=== PATIENT | male | born 1965 | race Hispanic/Latino ===

== ENCOUNTER 2019-06-19 15:31 | Emergency (ER) | payer SELFPAY ==
--- NOTE | 2019-06-19 16:57 | RAD REPORT ---
EXAM DESCRIPTION: USExtremjamila Venous Uni Ltd06/19/2019 4:51 pm CLINICAL HISTORY: Right leg pain . COMPARISON: None. FINDINGS: Right common femoral, superficial femoral, popliteal and right posterior tibial veins are compressible and demonstrate augmentation. Doppler demonstrates good flow. IMPRESSION: No evidence of deep venous thrombosis involving the right lower extremity.
--- NOTE | 2019-06-19 18:18 | ER ---
Nurse's Notes [facility] Name: Mervin Roper Age: 53 yrs Sex: Male : 1965 Arrival Date: 06/19/2019 Time: 15:32 Bed 26 Private MD: Unknown, Unknown Diagnosis: Pain in right lower leg;Sprain of deltoid ligament of right ankle Presentation: 06/19 16:17 Presenting complaint: Patient states: Swelling to the right leg since yesterday. aj1 Reports feeling "pins and needles" in his right foot. Strong DP pulse noted, but foot and lower leg is red and swollen. 16:22 Transition of care: patient was not received from another setting of care. Onset of aj1 symptoms was June 19, 2019. Risk Assessment: Do you want to hurt yourself or someone else? Patient reports no desire to harm self or others. Initial Sepsis Screen: Does the patient meet any 2 criteria? No. Patient's initial sepsis screen is negative. Does the patient have a suspected source of infection? No. Patient's initial sepsis screen is negative. Note Patient placed in a wheelchair and advised to not get up cleared by physician. Care prior to arrival: None. 16:22 Method Of Arrival: Ambulatory [facility] 16:22 Acuity: GREGORY 3 aj1 Triage Assessment: 16:25 General: Appears in no apparent distress. comfortable, Behavior is calm, cooperative, aj1 appropriate for age. Pain: Complains of pain in right leg Pain currently is 7 out of 10 on a pain scale. Neuro: Level of Consciousness is awake, alert, obeys commands. Cardiovascular: Patient's skin is warm and dry. Respiratory: Airway is patent Respiratory effort is even, unlabored, Respiratory pattern is regular, symmetrical. Historical: - Allergies: 16:24 Advil; aj1 - Home Meds: 16:24 None [Active]; aj1 - PMHx: 16:24 None; aj1 - Immunization history:: Flu vaccine is not up to date. - Social history:: Smoking status: Patient uses tobacco products, cigars. - Ebola Screening: : Patient denies travel to an Ebola-affected area in the 21 days before illness onset. Screenin:25 Abuse screen: Denies threats or abuse. Denies injuries from another. Nutritional rv screening: No deficits noted. Tuberculosis screening: No symptoms or risk factors identified. Fall Risk None identified. Assessment: 18:24 General: Appears in no apparent distress. comfortable, Behavior is calm, cooperative. rv Pain: Complains of pain in right leg. Neuro: Level of Consciousness is awake, alert, obeys commands, Oriented to person, place, time, situation. Cardiovascular: Patient's skin is warm and dry. Respiratory: Airway is patent. GI: No signs and/or symptoms were reported involving the gastrointestinal system. : No signs and/or symptoms were reported regarding the genitourinary system. EENT: No signs and/or symptoms were reported regarding the EENT system. Derm: Skin with poor turgor. Musculoskeletal: Swelling present in right leg. Vital Signs: 16:25 BP 120 / 76; Pulse 76; Resp 18; Temp 97.3; Pulse Ox 97% on R/A; Weight 84.37 kg (R); aj1 Height 5 ft. 6 in. (167.64 cm) (R); 16:25 Body Mass Index 30.02 (84.37 kg, 167.64 cm) aj1 ED Course: 15:32 Patient arrived in ED. ag5 15:34 Unknown, Unknown is Private Physician. ag5 16:23 Triage completed. aj1 16:25 Arm band placed on Patient placed in waiting room, Patient notified of wait time. aj1 16:52 US Extremity Venous Unilateral Ltd In Process Unspecified. EDMS 18:02 Vic Mobley, LAUREN is Primary Nurse. mg2 18:05 Kemal Carbone MD is Attending Physician. kdr 18:24 Patient has correct armband on for positive identification. Bed in low position. Call rv light in reach. Cardiac monitoring not applicable on this patient. 18:25 No provider procedures requiring assistance completed. Patient did not have IV access rv during this emergency room visit. Jarrod wrap to right leg. Administered Medications: No medications were administered Outcome: 18:17 Discharge ordered by . kdr 18:25 Discharged to home ambulatory. rv 18:25 Condition: good 18:25 Discharge instructions given to patient, Instructed on discharge instructions, follow up and referral plans. Demonstrated understanding of instructions, follow-up care. 18:26 Instructed on medication usage, Demonstrated understanding of medications, rv Prescriptions given X 1. 18:27 Patient left the ED. rv Signatures: Dispatcher [facility] CenterSend Word Nowst EDElena Aj RN RN aj1 Kemal Carbone MD MD [facility] Vic Mobley RN RN [facility] Librado Corey RN RN Tc Dodd ag5 Corrections: (The following items were deleted from the chart) 16:23 16:17 Presenting complaint: Patient states: Swelling to the right leg since yesterday. aj1 Reports feeling "pins and needles" in his right foot. aj1 18:26 18:24 Pain: Denies pain. rv rv
--- NOTE | 2019-06-19 18:18 | EDPHYS ---
Physician Documentation [facility] Name: Mervin Roper Age: 53 yrs Sex: Male : 1965 Arrival Date: 06/19/2019 Time: 15:32 Bed 26 Private MD: Unknown, Unknown ED Physician Kemal Carbone HPI: 06/19 18:31 This 53 yrs old Male presents to ER via Ambulatory with complaints of Right kdr ankle pain/swelling. 18:31 The patient presents with decreased range of motion, an injury, pain, that is acute, kdr swelling, tenderness. The complaints affect the right ankle. Context: The problem was sustained at work, resulted from twisting of the extremity, the patient can fully bear weight, the patient is able to ambulate, without difficulty, Problem is a result from a previous injury: Yes. Multiple injuries. Onset: The symptoms/episode began/occurred gradually, 3 day(s) ago. Modifying factors: The symptoms are alleviated by nothing. the symptoms are aggravated by movement, weight bearing. Associated signs and symptoms: Pertinent positives: swelling, warmth. Severity of symptoms: At their worst the symptoms were mild, in the emergency department the symptoms are unchanged. The patient has experienced similar episodes in the past, chronically, Has chronic exacerbations of ankle pain/swelling. The patient has not recently seen a physician. Historical: - Allergies: 16:24 Advil; aj1 - Home Meds: 16:24 None [Active]; aj1 - PMHx: 16:24 None; aj1 - Immunization history:: Flu vaccine is not up to date. - Social history:: Smoking status: Patient uses tobacco products, cigars. - Ebola Screening: : Patient denies travel to an Ebola-affected area in the 21 days before illness onset. ROS: 18:31 Constitutional: Negative for fever, chills, and weight loss, Eyes: Negative for injury, kdr pain, redness, and discharge, Neck: Negative for injury, pain, and swelling, Cardiovascular: Negative for chest pain, palpitations, and edema, Respiratory: Negative for shortness of breath, cough, wheezing, and pleuritic chest pain, Abdomen/GI: Negative for abdominal pain, nausea, vomiting, diarrhea, and constipation. 18:31 MS/extremity: Positive for pain, swelling, tenderness, of the right ankle, Negative for contusion, decreased range of motion, deformity, erythema, puncture, rash. Exam: 18:31 Constitutional: This is a well developed, well nourished patient who is awake, alert, kdr and in no acute distress. Head/Face: Normocephalic, atraumatic. 18:31 Musculoskeletal/extremity: Extremities: grossly normal except: noted in the right ankle: ecchymosis, pain, swelling, tenderness. Vital Signs: 16:25 BP 120 / 76; Pulse 76; Resp 18; Temp 97.3; Pulse Ox 97% on R/A; Weight 84.37 kg (R); aj1 Height 5 ft. 6 in. (167.64 cm) (R); 16:25 Body Mass Index 30.02 (84.37 kg, 167.64 cm) aj MDM: 18:17 Patient medically screened. kdr 18:31 Data reviewed: vital signs, nurses notes, radiologic studies. Counseling: I had a kdr detailed discussion with the patient and/or guardian regarding: the historical points, exam findings, and any diagnostic results supporting the discharge/admit diagnosis. 06/19 16:26 Order name: US Extremity Venous Unilateral Ltd; Complete Time: 18:11 [facility] Administered Medications: No medications were administered Disposition: 06/19/19 18:17 Discharged to Home. Impression: Pain in right lower leg, Sprain of deltoid ligament of right ankle. - Condition is Stable. - Discharge Instructions: Ankle Sprain, [id number], Ankle Pain. - Prescriptions for Tramadol 50 mg Oral Tablet - take 1 tablet by ORAL route every 8 hours as needed; 12 tablet. - Medication Reconciliation Form, Thank You Letter, Prescription Opioid Use, Work release form form. - Follow up: Private Physician; When: 1 - 2 days; Reason: If symptoms return, Further diagnostic work-up, Recheck today's complaints, Continuance of care, Re-evaluation by your physician. - Problem is an acute exacerbation. - Symptoms have improved. Signatures: Dispatcher [employer] EDElena Aj RN RN aj1 Kemal Carbone MD MD kdr Vic Mobley RN RN mg2 Librado Corey RN RN rv Corrections: (The following items were deleted from the chart) 18:27 18:17 06/19/2019 18:17 Discharged to Home. Impression: Pain in right lower leg; Sprain rv of deltoid ligament of right ankle. Condition is Stable. Forms are Medication Reconciliation Form, Thank You Letter, Antibiotic Education, Prescription Opioid Use. Follow up: Private Physician; When: 1 - 2 days; Reason: If symptoms return, Further diagnostic work-up, Recheck today's complaints, Continuance of care, Re-evaluation by your physician. Problem is an acute exacerbation. Symptoms have improved. kdr
[2019-06-19 19:51] VITALS: BP 120/76; TEMP 97.3; O2SAT 97
== END 2019-06-19 18:27 | disposition home or self-care (01) ==
LOC: ER 15:31
DX: S93.421A Sprain of deltoid ligament of right ankle, initial encounter (principal); X50.1XXA Overexertion from prolonged static or awkward postures, initial encounter; Y93.9 Activity, unspecified; Y92.89 Other specified places as the place of occurrence of the external cause; Y99.8 Other external cause status; Z72.0 Tobacco use; Z88.6 Allergy status to analgesic agent
CPT/HCPCS: 93971; 99283

== ENCOUNTER 2021-06-21 08:02 | Emergency (ER) | payer SELFPAY ==
--- NOTE | 2021-06-21 10:08 | RAD REPORT ---
EXAM DESCRIPTION: US - Extremity Venous Uni Ltd - 06/21/2021 9:41 am CLINICAL HISTORY: Pain;Swelling Leg swelling and edema. COMPARISON: Extremity Venous Uni Ltd dated 06/19/2019 FINDINGS: Right lower extremity venous system was interrogated with Doppler technique. Normal flow, compressibility and augmentation was noted. There is no DVT present. IMPRESSION: No evidence of right lower extremity deep venous thrombosis.
--- NOTE | 2021-06-21 10:15 | EDPHYS ---
Physician Documentation [facility] Name: Mervin Roper Age: 55 yrs Sex: Male : 1965 Arrival Date: 06/21/2021 Time: 08:04 Bed 30 Private MD: ED Physician Arjun Damon HPI: 06/21 08:42 This 55 yrs old Male presents to ER via Wheelchair with complaints of Leg jr8 Swelling - burning sensation. 08:50 The patient presents with pain, swelling, tenderness. The complaints affect the right jr8 leg. 08:56 Severity of symptoms: At their worst the symptoms were moderate, in the emergency jr8 department the symptoms are unchanged. The patient has not experienced similar symptoms in the past. The patient has not recently seen a physician. This is a 55-year-old male patient that presented to the emergency room with a right leg swelling and pain for about 5 days. Stated that it is finally started to decrease. 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 Historical: - Allergies: 08:09 Advil; tw2 - Home Meds: 08:09 None [Active]; tw2 - PMHx: 08:09 None; tw2 - PSHx: 08:09 part of intestines removed at ; tw2 - Immunization history:: Client reports receiving the 2nd dose of the Covid vaccine. - Social history:: Smoking status: Patient reports the use of cigarette tobacco products, cigars. ROS: 08:56 Eyes: Negative for injury, pain, redness, and discharge, ENT: Negative for injury, jr8 pain, and discharge, Neck: Negative for injury, pain, and swelling, Cardiovascular: Negative for chest pain, palpitations, and edema, Respiratory: Negative for shortness of breath, cough, wheezing, and pleuritic chest pain, Abdomen/GI: Negative for abdominal pain, nausea, vomiting, diarrhea, and constipation, Back: Negative for injury and pain, Skin: Negative for injury, rash, and discoloration, Neuro: Negative for headache, weakness, numbness, tingling, and seizure. 08:56 MS/extremity: Positive for erythema, pain, swelling, tenderness, of the right leg. Exam: 08:56 Constitutional: This is a well developed, well nourished patient who is awake, alert, jr8 and in no acute distress. Cardiovascular: Regular rate and rhythm with a normal S1 and S2. No gallops, murmurs, or rubs. Normal PMI, no JVD. No pulse deficits. Respiratory: Lungs have equal breath sounds bilaterally, clear to auscultation and percussion. No rales, rhonchi or wheezes noted. No increased work of breathing, no retractions or nasal flaring. Skin: Warm, dry with normal turgor. Normal color with no rashes, no lesions, and no evidence of cellulitis. Neuro: Awake and alert, GCS 15, oriented to person, place, time, and situation. Cranial nerves II-XII grossly intact. Motor strength 5/5 in all extremities. Sensory grossly intact. 08:56 Musculoskeletal/extremity: Extremities: grossly normal except: noted in the right leg: Patient's right lower extremity noted to be mildly swollen when compared to the left leg. Patient has obvious varicosities present. From the ankle to the lower proximal calf there is mild erythema without warmth along with bronzing typical of stasis dermatitis. Tender to palpation. No evident signs of cellulitis at this time. No open wounds or ulcerations noted., ROM: intact in all extremities, Circulation is intact in all extremities. Sensation intact. Vital Signs: 08:07 BP 153 / 88; Pulse 77; Resp 17; Temp 98.3; Pulse Ox 99% on R/A; Weight 77.11 kg (R); tw2 Height 5 ft. 8 in. (172.72 cm); Pain 8/10; 08:36 BP 142 / 95; Pulse 71; Resp 16; Temp 98.3(O); Pulse Ox 97% on R/A; kh1 08:07 Body Mass Index 25.85 (77.11 kg, 172.72 cm) tw2 MDM: 08:13 Patient medically screened. jr8 08:56 Data reviewed: vital signs, nurses notes, radiologic studies, ultrasound. Data jr8 interpreted: Pulse oximetry: on room air is 97 %. Interpretation: normal. Counseling: I had a detailed discussion with the patient and/or guardian regarding: the historical points, exam findings, and any diagnostic results supporting the discharge/admit diagnosis, radiology results, the need for outpatient follow up, a family practitioner, to return to the emergency department if symptoms worsen or persist or if there are any questions or concerns that arise at home. ED course: Discussed with patient that we need to ultimately rule out deep venous thrombosis based on his complaint and exam. If negative discussed with patient that he has significant varicosities of the right lower extremity resulting in venous stasis and stasis dermatitis. Needs to start wearing compression stockings anytime he is at work and to elevate his legs as much as possible.. 10:13 ED course: No DVT present. Will treat with compression stockings and steroid cream from jr8 the dermatitis region . 06/21 08:28 Order name: US Extremity Venous Unilateral Ltd; Complete Time: 10:13 jr8 Administered Medications: No medications were administered Disposition Summary: 06/21/21 10:14 Discharge Ordered Location: Home jr8 Problem: new jr8 Symptoms: have improved jr8 Condition: Stable jr8 Diagnosis - Varicose veins of right lower extremities with pain jr8 - Venous Stasis Dermatitis jr8 Followup: jr8 - With: Private Physician - When: 5 - 6 days - Reason: Recheck today's complaints, Continuance of care, Re-evaluation by your physician Discharge Instructions: - Discharge Summary Sheet jr8 - Varicose Veins jr8 - Stasis Dermatitis jr8 Forms: - Medication Reconciliation Form jr8 - Work release form jr8 - Thank You Letter jr8 - Antibiotic Education jr8 - Prescription Opioid Use jr8 Prescriptions: - Hydrocortisone 0.5 % Topical Cream - apply 1 application by TOPICAL route 3 times per day As needed; 30 gram; jr8 Refills: 0, Product Selection Permitted Addendum: 06/24/2021 17:39 Co-signature as Attending Physician, Arjun Damon MD. m a2 Signatures: Dispatcher [employer] EDBrian Morton PA PA jr8 Zakiya Vazquez, RN RN tw2 Arjun Damon MD MD ma2
--- NOTE | 2021-06-21 10:15 | ER ---
Nurse's Notes [facility] Name: Mervin Roper Age: 55 yrs Sex: Male : 1965 Arrival Date: 06/21/2021 Time: 08:04 Bed 30 Private MD: Diagnosis: Varicose veins of right lower extremities with pain;Venous Stasis Dermatitis Presentation: 06/21 08:07 Chief complaint: Patient states: my RIGHT leg is swollen and red and painful. i work tw2 and stand for a long period of time. Patient's son or daughter states: his leg just gives out on him. Coronavirus screen: At this time, the client does not indicate any symptoms associated with coronavirus-19. Ebola Screen: Patient denies travel to an Ebola-affected area in the 21 days before illness onset. Initial Sepsis Screen: Does the patient meet any 2 criteria? No. Patient's initial sepsis screen is negative. Does the patient have a suspected source of infection? No. Patient's initial sepsis screen is negative. Risk Assessment: Do you want to hurt yourself or someone else? Patient reports no desire to harm self or others. Onset of symptoms was June 21, 2021. 08:07 Method Of Arrival: Wheelchair tw2 08:07 Acuity: GREGORY 3 tw2 Triage Assessment: 08:10 General: Appears in no apparent distress. Behavior is calm, cooperative, appropriate tw2 for age. Pain: Complains of pain in lateral aspect of right calf, right ankle, right calf, right Achilles, medial aspect of right calf, right lopez and anterior aspect of right ankle. Musculoskeletal: appears to be varicose veins noted to RIGHT lower extremity with discoloration noted. Historical: - Allergies: 08:09 Advil; tw2 - Home Meds: 08:09 None [Active]; tw2 - PMHx: 08:09 None; tw2 - PSHx: 08:09 part of intestines removed at ; tw2 - Immunization history:: Client reports receiving the 2nd dose of the Covid vaccine. - Social history:: Smoking status: Patient reports the use of cigarette tobacco products, cigars. Screenin:38 Abuse screen: Denies threats or abuse. Nutritional screening: No deficits noted. kh1 Tuberculosis screening: No symptoms or risk factors identified. Fall Risk Fall in past 12 months (25 points). No IV (0 pts). Gait- Weak (10 pts.). Mental Status- Oriented to own ability (0 pts). 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 Full function Gait is unsteady, Speech is normal, Facial symmetry appears normal. Cardiovascular: No deficits noted. Capillary refill < 3 seconds Patient's skin is warm and dry. Rhythm is sinus rhythm Chest pain is denied. Respiratory: Airway is patent Respiratory effort is even, unlabored, Respiratory pattern is regular. Vital Signs: 08:07 BP 153 / 88; Pulse 77; Resp 17; Temp 98.3; Pulse Ox 99% on R/A; Weight 77.11 kg (R); tw2 Height 5 ft. 8 in. (172.72 cm); Pain 8/10; 08:36 BP 142 / 95; Pulse 71; Resp 16; Temp 98.3(O); Pulse Ox 97% on R/A; kh1 08:07 Body Mass Index 25.85 (77.11 kg, 172.72 cm) tw2 ED Course: 08:04 Patient arrived in ED. am2 08:08 Triage completed. tw2 08:11 Arm band placed on. tw2 08:13 Brian Rosales PA is PHCP. jr8 08:13 Arjun Damon MD is Attending Physician. jr8 08:35 Sabrina Velazco is Primary Nurse. kh1 08:38 Patient has correct armband on for positive identification. Bed in low position. Call 1 light in reach. Side rails up X 1. 08:38 No provider procedures requiring assistance completed. kh1 09:09 US Extremity Venous Unilateral Ltd In Process Unspecified. EDMS 10:49 Patient did not have IV access during this emergency room visit. kh1 Administered Medications: No medications were administered Outcome: 10:14 Discharge ordered by . jr8 10:48 Discharged to home ambulatory. kh1 10:48 Condition: good 10:48 Discharge instructions given to patient, Instructed on discharge instructions, follow up and referral plans. medication usage, Demonstrated understanding of instructions, follow-up care, medications, Prescriptions given X 1. 10:49 Patient left the ED. kh1 Signatures: Dispatcher [employer] EDNJ Connie, Brian, PA PA jr8 Zakiya Vazquez RN RN tw2 Michelle Del Real am2 Sabrina Velazco kh1
[2021-06-21 10:55] VITALS: TEMP 98.3
[2021-06-21 10:57] VITALS: BP 142/95; O2SAT 97
== END 2021-06-21 10:49 | disposition home or self-care (01) ==
LOC: ER 08:02
DX: I83.11 Varicose veins of right lower extremity with inflammation (principal); F17.210 Nicotine dependence, cigarettes, uncomplicated
CPT/HCPCS: 93971; 99284

== ENCOUNTER 2023-01-31 13:45 | Emergency (ER) | payer SELFPAY ==
--- NOTE | 2023-01-31 15:28 | RAD REPORT ---
EXAM DESCRIPTION: US - Extremity Venous Uni Ltd - 01/31/2023 3:07 pm CLINICAL HISTORY: PAIN Leg swelling and edema. COMPARISON: <Comparisons> FINDINGS: Right lower extremity venous system was interrogated with Doppler technique. Normal flow, compressibility and augmentation was noted. There is no DVT present.Calcified popliteal cyst. IMPRESSION: No evidence of right lower extremity deep venous thrombosis.
--- NOTE | 2023-01-31 15:31 | RAD REPORT ---
EXAM DESCRIPTION: US - Lower Extremity Artery Uni Ltd - 01/31/2023 3:07 pm CLINICAL HISTORY: PAIN COMPARISON: No comparisons FINDINGS: Right lower extremity arterial system shows normal triphasic waveforms. No high-grade sten osis or occlusion. IMPRESSION: Negative study.
--- NOTE | 2023-01-31 15:54 | ER ---
Nurse's Notes [facility] Name: Mervin Roper Age: 57 yrs Sex: Male : 1965 Arrival Date: 01/31/2023 Time: 13:45 Bed 12 Private MD: Diagnosis: Varicose veins of left lower extremities with pain Presentation: 01/31 14:31 Chief complaint: Patient states: leanna leg pain for "years", reports swelling to right aa5 lower leg that began November 2022. 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 Coronavirus screen: At this time, the client does not indicate any symptoms associated with coronavirus-19. Ebola Screen: Patient denies travel to an Ebola-affected area in the 21 days before illness onset. Initial Sepsis Screen: Does the patient meet any 2 criteria? No. Patient's initial sepsis screen is negative. Does the patient have a suspected source of infection? No. Patient's initial sepsis screen is negative. Risk Assessment: Do you want to hurt yourself or someone else? Patient reports no desire to harm self or others. Onset of symptoms was November 2022. 14:31 Acuity: GREGORY 3 aa5 14:31 Method Of Arrival: Ambulatory aa5 Historical: - Allergies: 14:33 Advil; aa5 - Home Meds: 14:34 None [Active]; aa5 - PMHx: 14:34 None; aa5 - PSHx: 14:33 part of intestines removed at ; right leg (varicose veins); aa5 - Immunization history:: Adult Immunizations unknown. - Social history:: Smoking status: Patient reports the use of cigarette tobacco products, cigars, 2 cigarettes a day. Screenin:57 [facility] ED Fall Risk Assessment (Adult) History of falling in the last 3 months, mb9 including since admission No falls in past 3 months (0 pts) Confusion or Disorientation No (0 pts) Intoxicated or Sedated No (0 pts) Impaired Gait No (0 pts) Mobility Assist Device Used No (0 pt) Altered Elimination No (0 pt) Score/Fall Risk Level 0 - 2 = Low Risk Oriented to surroundings, Maintained a safe environment, Educated pt \\T\\ family on fall prevention, incl call for assistance when getting out of bed. Abuse screen: Denies threats or abuse. Nutritional screening: No deficits noted. Tuberculosis screening: No symptoms or risk factors identified. Assessment: 15:55 General: Appears in no apparent distress. Behavior is cooperative. Pain: Complains of mb9 pain in right leg Pain does not radiate. Pain currently is 5 out of 10 on a pain scale. Quality of pain is described as aching, "pins and needles" Is continuous, Aggravated by increased activity, weight bearing. Neuro: Level of Consciousness is awake, alert, obeys commands, Oriented to person, place, time, situation, Appropriate for age. Cardiovascular: Patient's skin is warm and dry. Respiratory: Airway is patent Respiratory effort is even, unlabored, Respiratory pattern is regular, symmetrical. Derm: Skin is pink, warm \\T\\ dry. Musculoskeletal: Range of motion: intact in all extremities, varicose veins noted to the right lower extremity. Vital Signs: 14:31 BP 153 / 101; Pulse 66; Resp 16 S; Temp 97.3(TE); Pulse Ox 100% on R/A; aa5 15:57 BP 129 / 88; Pulse 67; Resp 16; Pulse Ox 99% on R/A; mb9 ED Course: 13:49 Patient arrived in ED. am2 14:26 Christin Sky FNP-C [facility]. kb 14:26 Jerrod Wheeler MD is Attending Physician. kb 14:31 Arm band placed on. aa5 14:33 Triage completed. aa5 15:09 US Extremity Venous Unilateral Ltd In Process Unspecified. EDMS 15:09 US Lower Extremity Artery Uni Ltd In Process Unspecified. EDMS 15:57 Bed in low position. Call light in reach. Side rails up X 1. Client placed on mb9 continuous cardiac and pulse oximetry monitoring. NIBP monitoring applied. 15:58 No provider procedures requiring assistance completed. mb9 15:58 Patient did not have IV access during this emergency room visit. mb9 Administered Medications: No medications were administered Medication: 15:57 VIS not applicable for this client. mb9 Outcome: 15:53 Discharge ordered by . kb 15:58 Discharged to home ambulatory. mb9 15:58 Condition: stable 15:58 Discharge instructions given to patient, Instructed on discharge instructions, follow up and referral plans. Demonstrated understanding of instructions, follow-up care. 16:00 Patient left the ED. mb9 Signatures: Dispatcher [employer] EDMS Jose Daniel, Christin, STEAM SHOVEL ENGINEER-C STEAM SHOVEL ENGINEER-Ckb Janis Pedarza, RN RN aa5 Michelle Del Real am2 Micaela Rai, RN RN mb9
--- NOTE | 2023-01-31 15:54 | EDPHYS ---
Physician Documentation [facility] Name: Mervin Roper Age: 57 yrs Sex: Male : 1965 Arrival Date: 01/31/2023 Time: 13:45 Bed 12 Private MD: ED Physician Jerrod Wheeler HPI: 01/31 15:48 This 57 yrs old Male presents to ER via Ambulatory with complaints of Leg Pain kb - vein problem. 15:48 The patient presents with pain, swelling, tenderness. The complaints affect the right kb lower leg. Context: resulted from an unknown cause, the patient can fully bear weight, the patient is able to ambulate, Problem is a result from a previous injury: No. Onset: The symptoms/episode began/occurred "years ago". Modifying factors: The symptoms are alleviated by nothing. the symptoms are aggravated by nothing. Associated signs and symptoms: Pertinent positives: swelling, Pertinent negatives calf tenderness, fever, nausea, numbness, rash, tingling, vomiting, warmth, weakness. Treatment prior to arrival includes: no previous treatment. Severity of symptoms: At their worst the symptoms were moderate, in the emergency department the symptoms are unchanged. The patient has not experienced similar symptoms in the past. The patient has not recently seen a physician. Pt reports pain and swelling to right lower leg that started years ago, but has gotten worse over the last few months. . Historical: - Allergies: 14:33 Advil; aa5 - Home Meds: 14:34 None [Active]; aa5 - PMHx: 14:34 None; aa5 - PSHx: 14:33 part of intestines removed at ; right leg (varicose veins); aa5 - Immunization history:: Adult Immunizations unknown. - Social history:: Smoking status: Patient reports the use of cigarette tobacco products, cigars, 2 cigarettes a day. ROS: 15:45 Constitutional: Negative for fever, chills, and weight loss. kb 15:45 MS/extremity: Positive for pain, swelling, tenderness, of the right lower leg. 15:45 All other systems are negative. Exam: 15:45 Constitutional: This is a well developed, well nourished patient who is awake, alert, kb and in no acute distress. Head/Face: Normocephalic, atraumatic. ENT: Moist Mucous membranes Cardiovascular: Regular rate and rhythm with a normal S1 and S2. No gallops, murmurs, or rubs. No pulse deficits. Respiratory: Respirations even and unlabored. No increased work of breathing. Talking in full sentences Abdomen/GI: Soft, non-tender. No distention Skin: Warm, dry with normal turgor. Normal color. Neuro: Awake and alert, GCS 15, oriented to person, place, time, and situation. Moves all extremities. Normal gait. 15:45 Musculoskeletal/extremity: Extremities: grossly normal except: noted in the right lower leg: pain, swelling, tenderness, ROM: intact in all extremities, Circulation is intact in all extremities. Sensation intact. Weight bearing: able to fully bear weight. Vital Signs: 14:31 BP 153 / 101; Pulse 66; Resp 16 S; Temp 97.3(TE); Pulse Ox 100% on R/A; aa5 15:57 BP 129 / 88; Pulse 67; Resp 16; Pulse Ox 99% on R/A; mb9 MDM: 14:26 Patient medically screened. kb 15:48 Data reviewed: vital signs, nurses notes. kb 15:50 Differential diagnosis: varicose veins, dvt, neuropathy. Counseling: I had a detailed kb discussion with the patient and/or guardian regarding: the historical points, exam findings, and any diagnostic results supporting the discharge/admit diagnosis, radiology results, the need for outpatient follow up, a family practitioner, to return to the emergency department if symptoms worsen or persist or if there are any questions or concerns that arise at home. 01/31 14:34 Order name: Extremity Venous Unilateral Ltd; Complete Time: 15:30 kb 01/31 14:34 Order name: Lower Extremity Artery Uni Ltd; Complete Time: 15:35 kb Administered Medications: No medications were administered Disposition Summary: 01/31/23 15:53 Discharge Ordered Location: Home kb Condition: Stable kb Diagnosis - Varicose veins of left lower extremities with pain kb Followup: kb - With: Emergency Department - When: As needed - Reason: Worsening of condition Followup: kb - With: Private Physician - When: 2 - 3 days - Reason: Recheck today's complaints, Continuance of care, Re-evaluation by your physician Discharge Instructions: - Discharge Summary Sheet kb - Varicose Veins kb Forms: - Work release form kb - Medication Reconciliation Form kb - Thank You Letter kb - Antibiotic Education kb - Prescription Opioid Use kb Signatures: Dispatcher [employer] Christin Real, GARNETTER-C AVA-Janis Hammer, RN RN aa5 Corrections: (The following items were deleted from the chart) 15:56 15:50 Differential diagnosis: vericose veins, dvt, neuropathy kb kb
[2023-01-31 16:07] VITALS: TEMP 97.3
[2023-01-31 16:09] VITALS: BP 129/88; O2SAT 99
== END 2023-01-31 16:00 | disposition home or self-care (01) ==
LOC: ER 13:45
DX: I83.811 Varicose veins of right lower extremity with pain (principal); Z88.6 Allergy status to analgesic agent
CPT/HCPCS: 93926; 93971; 99283